=== PATIENT | female | born 2000 | race Caucasian/White ===

== ENCOUNTER 2023-11-23 06:15 | Inpatient (IN) | payer MEDICAID ==
[2023-11-23] VITALS (23 sets, daily range): BP systolic 105–139; BP diastolic 64–91; PULSE 69–99; TEMP 97.6–98.5
[~2023-11-23] VITALS: Ht 162.6 cm; Wt 90.9 kg
[~2023-11-23 06:15] MED LIST: FERROUS SU325 MG/TAB PO; MOTRIN 800800 MG/TAB PO; PRENATAL TABLET PO
[2023-11-23] MEDS ORDERED: LR & Oxytocin 500 ML IV SCH ×2 (06:30)
[2023-11-23] MEDS ORDERED: LR 1,000 ML IV SCH (06:30)
--- NOTE | 2023-11-23 06:40 | NUR ---
PATIENT AMBULATED ON THE UNIT AND TO LABOR ROOM. PATIENT REPORTS CONTRACTIONS. PATIENT DENIES ANY LEAKING OF FLUID OR BLEEDING. PATIENT REPORTS NORMAL MOVEMENT. EFM AND TOCO INITIATED. SPO2 INITIATED.
[2023-11-23 07:18] LABS: BASO # 0.1 K/mm3 (0.0-0.2); BASO % 0.6 % (0.0-2.0); GRAN # 6.3 K/mm3 (1.4-6.5); GRAN % 70.5 % (42.2-75.2); HEMATOCRIT 38.5 % (37.0-47.0); LYMPH # 1.7 K/mm3 (1.2-3.4); LYMPH % 19.5 % (20.0-51.0); MEAN CELL VOLUME 83 fl (80.0-100.0); MEAN CORPUSCULAR HEMOGLOBIN 28 pg (27-31); MEAN CORPUSCULAR HGB CONC 34 g/dl (33.0-37.0); MEAN PLATELET VOLUME 11.7 fl (7.4-10.4); MONO # 0.7 K/mm3 (0.1-0.6); MONO % 8.3 % (1.7-9.3); PLATELET COUNT 173 K/mm3 (130-400); RED BLOOD COUNT 4.65 M/mm3 (4.10-5.30); REDCELL DISTRIBUTION WIDTH-CV 14.4 % (11.5-14.5)
--- NOTE | 2023-11-23 07:20 | NUR ---
AT BEDSIDE. FHR TRACING REVIEWED. PLAN OF CARE UPDATED. SVE:/-2. AROM @ 8905, CLEAR FLUID.
[2023-11-23] MEDS ORDERED: ROPivacaine PF 0.2% 200 ML IV ONE (09:41)
[2023-11-23] MEDS ORDERED: Lidocaine PF 2% (20 MG/ML) 5 ML VIAL ONE (10:05)
[2023-11-23] MEDS ORDERED: Ondansetron 4 MG/2 ML VIAL IV PRN ×2 (10:45→14:45)
[2023-11-23] MEDS ORDERED: diphenhydrAMINE 50 MG/ML 1 ML VIAL IV PRN (10:45)
[2023-11-23] MEDS ORDERED: ePHEDrine 50 MG/10 ML VIAL IV PRN (10:45)
[2023-11-23] MEDS ORDERED: diphenhydrAMINE 25 MG CAP PO PRN (10:45)
[2023-11-23] MEDS ORDERED: Naloxone 0.4 MG/ML VIAL IV PRN ×2 (10:45→12:30)
--- NOTE | 2023-11-23 11:13 | NUR ---
1107 DR. ALCARAZ AT BEDSIDE. PATIENT SETUP FOR VAGINAL DELIVERY. PUSHING EFFORTS INITIATED. 1113 OF VIABLE MALE . PLACED ON MOTHER'S ABDOMEN.CARE OF GIVEN TO NURSERY RN. 1115 OF PLACENTA. PITOCIN BOLUS INITIATED AT 333ML/HR. REPAIR OF SUPERFICIAL LABIAL LACERATION AND POSTERIOR VAGINAL LACERATION. FUNDUS FIRM. LOCHIA WNL.
[2023-11-23] MEDS ORDERED: Magnes Hydrox (MOM) 80 MG/ML 30 ML CUP PO PRN (11:45)
[2023-11-23] MEDS ORDERED: Loratadine 10 MG TAB PO PRN (11:45)
--- NOTE | 2023-11-23 12:15 | NUR ---
RN AT BEDSIDE FOR 1215 FUNDAL CHECK. DISPOSABLE BED PAD AND ICE PACK SATURATED WITH A QUARTER SIZE CLOT ON PAD. PAD AND ICE PACK WEIGHED TO GET A QBL OF 148. DR. ALCARAZ NOTIFIED. PROVIDER REQUESTS A 2ND BAG OF PITOCIN BE HUNG AND CONTINUE TO MONITOR. RN AT BEDSIDE FOR 1245 FUNDAL CHECK. DISPOSABLE PAD SATURATED AND WEIGHED. QBL OF 119. RN AT BEDSIDE @ 1300 CLOT EXPELLED WITH FUNDAL MASSAGE. CLOT WEIGHED AND DETERMINED TO BE A QBL OF 31. RN AT BEDSIDE @ 1315 CLOT EXPELLED WITH FUNDAL MASSAGE. CLOT AND PEACH PAD WEIGHED. QBL 78. DR. ALCARAZ NOTIFIED. PROVIDER REQUESTS METHERGINE 0.2 IM NOW. GIVE SAME DOSE ORALLY Q6H X 4 DOSES.
[2023-11-23] MEDS ORDERED: oxyCODONE 5 MG TAB PO PRN (12:30)
[2023-11-23] MEDS ORDERED: Mag/Al Hydrox/Simeth Susp 30 ML CUP PO PRN (12:30)
[2023-11-23] MEDS ORDERED: Ibuprofen 800 MG TAB PO SCH (12:30)
[2023-11-23] MEDS ORDERED: Phenylephrine/Mineral Oil/Petrolatum 57 GM TUBE RC PRN (12:30)
[2023-11-23] MEDS ORDERED: Witch Hazel 50% Pads Bulk TUB TP PRN (12:30)
[2023-11-23] MEDS ORDERED: Acetaminophen 500 MG TAB PO SCH (12:30)
[2023-11-23] MEDS ORDERED: Measles/Mumps/Rubella Virus Vaccine Live w Diluent 0.5 ML VIAL SQ SCH (12:30)
[2023-11-23] MEDS ORDERED: Methylergonovine 0.2 MG/ML 1 ML AMPUL IM ONE (13:30)
[2023-11-23] MEDS ORDERED: LR & Oxytocin 500 ML IV ONE (13:45)
--- NOTE | 2023-11-23 15:15 | NUR ---
PATIENT AMBULATED UP TO BATHROOM STANDBY ASSIST X 1 RN WITHOUT COMPLICATIONS. PATIENT VOIDED, PERICARE COMPLETED. PATIENT THEN AMBULATED TO ROOM STANDBY ASSIST.ORIENTED TO ROOM AND PLAN OF CARE REVIEWED.
[2023-11-23] MEDS ORDERED: Sennosides/Docusate 8.6-50 MG TAB PO SCH (17:00)
[2023-11-23] MEDS ORDERED: Methylergonovine 0.2 MG TAB PO SCH (19:30)
[2023-11-23] MEDS ORDERED: traZODone 50 MG TAB PO PRN (21:00)
[2023-11-24 08:30] VITALS: BP 128/84; PULSE 85; TEMP 98.2
--- NOTE | 2023-11-24 14:45 | NUR ---
Rests in bed, alert. Discharge instructions given, verbalizes understanding.
== END 2023-11-24 13:20 | disposition home or self-care (01) | DRG 807 ==
LOC: LDR 06:15 → OB 08:45
PROVIDERS: ADMIT Obstetrics & Gynecology
PROC: 10E0XZZ Delivery of Products of Conception, External Approach (ICD-10-PCS; principal; 2023-11-23)
PROC: 0KQM0ZZ Repair Perineum Muscle, Open Approach (ICD-10-PCS; 2023-11-23)
PROC: 0UQMXZZ Repair Vulva, External Approach (ICD-10-PCS; 2023-11-23)
PROC: 10907ZC Drainage of Amniotic Fluid, Therapeutic from Products of Conception, Via Natural or Artificial Opening (ICD-10-PCS; 2023-11-23)
PROC: 3E033VJ Introduction of Other Hormone into Peripheral Vein, Percutaneous Approach (ICD-10-PCS; 2023-11-23)
DX: O99.02 Anemia complicating childbirth (principal); Z37.0 Single live birth; Z3A.39 39 weeks gestation of pregnancy; O70.1 Second degree perineal laceration during delivery
CPT/HCPCS: J2210; J2405; J2590; J2795; J7120